=== PATIENT | male | born 1945 | race Caucasian/White ===

== ENCOUNTER 2022-03-25 20:28 | Emergency (ER) | payer MEDICARE ==
[~2022-03-25] VITALS: Ht 172.7 cm; Wt 76.2 kg
[2022-03-25] MEDS ORDERED: DICYCLOMINE HCL10 MG PO (21:23)
[2022-03-25] MEDS ORDERED: ONDANSETRON ODT4 MG PO (21:23)
== END 2022-03-25 21:37 | disposition home or self-care (01) ==
LOC: FSED 21:05
DX: R11.2 Nausea with vomiting, unspecified (principal); R10.11 Right upper quadrant pain; R14.0 Abdominal distension (gaseous); I10 Essential (primary) hypertension; H40.9 Unspecified glaucoma
CPT/HCPCS: 80048; 80076; 85025; 99282